=== PATIENT | female | born 1990 | race African-American/Black ===

== ENCOUNTER 2018-08-15 20:38 | Emergency (ER) | payer MEDICARE, MEDICAID ==
[2018-08-15] MEDS: AMOXICILLIN 500 MG CAP PO (23:26)
[2018-08-15] MEDS: IBUPROFEN 800 MG TAB PO (23:27)
== END 2018-08-16 00:13 | disposition home or self-care (01) ==
LOC: FTE 08-16 00:13
DX: H92.02 Otalgia, left ear (principal)
CPT/HCPCS: 99283